=== PATIENT | male | born 1965 | race Caucasian/White ===

== ENCOUNTER → 2020-03-15 10:15 | Outpatient (BNVA) | payer OTHER, SELFPAY | PROVIDERS: PCP Internal Medicine; Visit Provider Urology | DX: Z76.89 Persons encountering health services in other specified circumstances (principal) ==

== ENCOUNTER 2020-07-23 13:10 | Outpatient (REF) | payer OTHER, SELFPAY ==
--- NOTE | ~2020-07-23 | XR_ITS ---
EXAMINATION: XR KNEE, RIGHT CLINICAL INFORMATION: Right knee pain. COMPARISON: None TECHNIQUE: AP standing views of both knees as well as sunrise and lateral view of the right knee. FINDINGS: There is no evidence of acute fracture or dislocation on provided imaging. Joint spaces are maintained about the medial and lateral joint spaces bilaterally. There is some bony spurring seen about the medial aspect of the distal right femur consistent with previous medial collateral ligament injury. Lateral and sunrise views of the right knee demonstrate mild spurring undersurface of the patella at the patellofemoral joint. The joint space is maintained. No effusion is noted. XR/XR knee RT 2V IMPRESSION: Mild degenerative change right patellofemoral joint. 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
--- NOTE | ~2020-07-23 | XR_ITS ---
EXAMINATION: XR KNEE, RIGHT CLINICAL INFORMATION: Right knee pain. COMPARISON: None TECHNIQUE: AP standing views of both knees as well as sunrise and lateral view of the right knee. FINDINGS: There is no evidence of acute fracture or dislocation on provided imaging. Joint spaces are maintained about the medial and lateral joint spaces bilaterally. There is some bony spurring seen about the medial aspect of the distal right femur consistent with previous medial collateral ligament injury. Lateral and sunrise views of the right knee demonstrate mild spurring undersurface of the patella at the patellofemoral joint. The joint space is maintained. No effusion is noted. XR/XR knee standing BI IMPRESSION: Mild degenerative change right patellofemoral joint. 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
== END 2020-07-23 13:11 | disposition home or self-care (01) ==
LOC: HO.HOSX 13:10
PROVIDERS: Visit Provider Orthopaedic Surgery
DX: M25.561 Pain in right knee (principal); M25.562 Pain in left knee
CPT/HCPCS: 73560; 73565

== ENCOUNTER → 2020-07-24 12:07 | Outpatient (BNVA) | payer OTHER, SELFPAY | PROVIDERS: PCP Internal Medicine; Visit Provider Orthopaedic Surgery | DX: M25.561 Pain in right knee (principal); M25.562 Pain in left knee ==

== ENCOUNTER 2021-07-29 09:33 | Outpatient (REF) | payer OTHER, SELFPAY ==
[2021-07-29 10:15] LABS: Hematocrit 43.1 % (42.0-52.0); Hemoglobin 14.9 g/dl (14.0-18.0); Mean Corpuscular HGB Conc 34.6 g/dl (31.0-36.0); Mean Corpuscular Hemoglobin 29.2 pg (27.0-33.0); Mean Corpuscular Volume 84.5 fL (80.0-98.0); Mean Platelet Volume 9.4 fL (9.4-12.4); Platelet Count 186 X10*3/uL (160-400); White Blood Count 5.9 X10*3/uL (4.8-10.8)
[2021-08-03 17:47] LABS: Testosterone, Free 178.7 pg/mL (35.0-155.0); Testosterone, Total 889 ng/dL (250-1100)
== END 2021-07-29 09:34 | disposition home or self-care (01) ==
LOC: HO.LAB 09:33
PROVIDERS: PCP Family Medicine; Visit Provider Urology
DX: Z12.5 Encounter for screening for malignant neoplasm of prostate (principal); N52.01 Erectile dysfunction due to arterial insufficiency; E29.1 Testicular hypofunction
CPT/HCPCS: 36415; 84153; 84402; 84403; 85027

== ENCOUNTER 2022-04-04 13:52 | Outpatient (REF) | payer OTHER, SELFPAY ==
[2022-04-04 15:00] LABS: Hematocrit 47.1 % (42.0-52.0)
[2022-04-04 16:03] LABS: Prostate Specific Antigen 0.45 ng/mL (<0.05-4.0)
[2022-04-10 13:54] LABS: Testosterone, Total 123 ng/dL (250-1100)
== END 2022-04-04 13:53 | disposition home or self-care (01) ==
LOC: HO.LAB 13:52
PROVIDERS: PCP Internal Medicine; Visit Provider Urology
DX: Z12.5 Encounter for screening for malignant neoplasm of prostate (principal); E29.1 Testicular hypofunction
CPT/HCPCS: 36415; 84153; 84403; 85014

== ENCOUNTER → 2022-04-10 13:46 | Outpatient (BNVA) | payer OTHER, SELFPAY | PROVIDERS: PCP Internal Medicine; Visit Provider Urology | DX: Z13.89 Encounter for screening for other disorder (principal) ==

== ENCOUNTER 2022-10-31 11:10 | Outpatient (REF) | payer OTHER, SELFPAY ==
[2022-10-31 13:29] LABS: Hematocrit 46.9 % (42.0-52.0); Hemoglobin 15.8 g/dl (14.0-18.0); Mean Corpuscular HGB Conc 33.7 g/dl (31.0-36.0); Mean Corpuscular Hemoglobin 28.9 pg (27.0-33.0); Mean Corpuscular Volume 85.7 fL (80.0-98.0); Mean Platelet Volume 9.8 fL (9.4-12.4); Platelet Count 192 X10*3/uL (160-400); Red Blood Count 5.47 X10*6/uL (4.60-5.80); Red Cell Distribution Width 12.6 % (11.0-16.0); White Blood Count 5.3 X10*3/uL (4.8-10.8)
[2022-10-31 14:05] LABS: PSA,Total (Free>4and<10) 0.59 ng/mL (0.00-4.00)
[2022-11-06 10:59] LABS: Testosterone, Free 163.4 pg/mL (35.0-155.0); Testosterone, Total 720 ng/dL (250-1100)
== END 2022-10-31 11:11 | disposition home or self-care (01) ==
LOC: HO.HMGCLDS 11:10
PROVIDERS: Visit Provider Urology
DX: Z12.5 Encounter for screening for malignant neoplasm of prostate (principal); E29.1 Testicular hypofunction
CPT/HCPCS: 36415; 84153; 84402; 84403; 85027

== ENCOUNTER 2022-11-14 12:58 | Outpatient (AMB) | payer OTHER, SELFPAY ==
--- NOTE | 2022-11-14 12:58 | MHC.OFFVIS ---
Intake Intake Visit Reasons: 4M CBC/PSA/Testo(pending) Intake Note: Patient is present for Telephone labs Urology Med: Sildenafil, Tadalafil, testosterone Antibiotic Allergy: None Blood Thinner: None [facility]acy: [facility] Allergies No Known Allergies Allergy (Verified 11/14/22 12:59) HPI HPI Comments History of Present Illness Details Jayme is a pleasant male. He is a patient of Dr. Acosta. He is seen for the following urologic conditions - low testosterone - erectile dysfunction Telemedicine Evaluation 15 min Consultation [employer] Video attempted Lab work done on a Thursday. T 720 P 0.45 H 46.9 Injection Day: Thu Adjust testosterone dose to 0.[address] scan after UTI. Thickened bladder. Plan on trial of daily tadalafil. Hypogonadism: Would suggest therapeutic phlebotomy once every 6 months. The patient presents for hypogonadism which was diagnosed 2012 and the patient reports no current symptoms. Other symptoms include libido recovered Laboratory testing has included Testosterone 08/28 548, October 2015 testosterone 618, estradiol 32, hematocrit August - , Testosterone 129, hematocrit 53 04/02 , Testosterone 500, Hct 53 09/30 , Testosterone 993, PSA 0.6 06/01 T 750, PSA 0.7, HCT 52, 01/01 T 122, PSA 0.4, HCT 54.9 08/04 T 888 0.3 43, 04/07 T 123 P 0.45, 11/05 T 720 P 0.45 H 46.9 Medication(s) include testosterone. Response to medication(s) has been good. He injects around .6cc every 7 days subq Erectile dysfunction: He presents today for for continued evaluation and management of erectile dysfunction Symptoms have been present for/since several months ago. Current treatment includes none. Treatment side effects include none. Prior therapies include oral medications - 20mg sildenafil At this time he experiences erections 04/02 are partial and adequate for vaginal penetration, ALIZA 17-21 Mild ED. Currently they are in a stable relationship. Overall he is satisfied with the current management. Therapeutic plan includes oral medication - discussed Review of Systems Const All systems reviewed & are unremarkable except as noted in HPI and below Reports no additional complaints Resp Reports no additional complaints GI Reports no additional complaints Reports as per HPI Musc Reports no additional complaints Physical Exam Telemedicine evaluation Appropriate responses Regular breathing rate and rhythm HEENT Head: Yes normal to inspection Ears: hearing grossly normal bilaterally Eyes General: appearance normal, both eyes and all related structures Neck Neck: Yes normal visual inspection Chest Chest palpation & inspection: normal inspection of the chest Resp Effort & Inspection: normal respiratory effort and able to speak in complete sentences Assessment & Plan Assessment & Plan (1) Incomplete emptying of bladder due to benign prostatic hyperplasia: Code(s): N40.1 - Benign prostatic hyperplasia with lower urinary tract symptoms; R33.9 - Retention of urine, unspecified Plan Adjust testosterone dose Convert to daily tadalafil Orders: Orders Prostate Specific Antigen 6 Months N52.01 - Erectile dysfunction due to arterial insufficiency Complete Blood Count no Diff 6 Months N52.01 - Erectile dysfunction due to arterial insufficiency Testosterone, Total 6 Months N52.01 - Erectile dysfunction due to arterial insufficiency Medications: New tadalafil 5 mg PO DAILY 90 tabs 1RF BPH 90 days N40.1 - Benign prostatic hyperplasia with lower urinary tract symptoms, R33.9 - Retention of urine, unspecified Changed From testosterone cypionate subq administration - check lab work 2-3 full days after injection 120 mg (0.6 mL) subcut QWEEK 4 mL 5RF 28 days E29.1 - Testicular hypofunction To testosterone cypionate subq administration - check lab work 2-3 full days after injection 160 mg (0.8 mL) subcut QWEEK 4 mL 5RF 28 days E29.1 - Testicular hypofunction Patient Instructions: Imaging studies, laboratory and physical exam results were discussed and reviewed in detail. No major barriers to patient understanding were identified. An opportunity to ask questions regarding the treatment plan was provided. All questions were answered. The patient expressed understanding and agreement with the above treatment plan. The patient is aware they should contact our office by phone for worsening of their current condition or the appearance of new urologic symptoms. Compliance is encouraged with any medications and followup testing that is ordered. It is a privilege to participate in the urologic care of your patient. If you have any questions or concerns regarding treatment for the above conditions, or other urologic issues, please do not hesitate to contact me. The office telephone contact is [phone]. This note is constructed using voice recognition software. While every effort has been made to ensure accuracy entertainment production professional errors may have been included. Yours sincerely, Dr Butch Roberts MD, [facility] - Urology Providers of Expert, Compassionate Care for the Genitourinary System Telehealth Telehealth Location of provider rendering services: practice address Location of patient: address on file Patient Identification confirmed using: Name, : Yes Telehealth method: video Patient verbally consented to treatment: Yes Patient verbally consented to billing insurance company: Yes Patient informed of any privacy concerns related to visit: Yes Coding Level of Care Code Tele Est Pt Level 4 (36735) Diagnoses Incomplete emptying of bladder due to benign prostatic hyperplasia N40.1; R33.9
== END 2022-11-14 13:49 | disposition home or self-care (01) ==
LOC: HO.HUSH 12:58
PROVIDERS: PCP Internal Medicine; Visit Provider Urology
DX: N40.1 Benign prostatic hyperplasia with lower urinary tract symptoms (principal); R33.9 Retention of urine, unspecified
CPT/HCPCS: 99214

== ENCOUNTER → 2022-11-14 12:58 | Outpatient (BNVA) | payer OTHER, SELFPAY | PROVIDERS: PCP Internal Medicine; Visit Provider Urology ==

== ENCOUNTER 2023-05-08 11:34 | Outpatient (REF) | payer OTHER, SELFPAY ==
[2023-05-08 14:38] LABS: Hemoglobin 16.3 g/dl (14.0-18.0); Mean Corpuscular HGB Conc 33.3 g/dl (31.0-36.0); Mean Corpuscular Hemoglobin 28.5 pg (27.0-33.0); Mean Corpuscular Volume 85.7 fL (80.0-98.0); Mean Platelet Volume 9.5 fL (9.4-12.4); Platelet Count 186 X10*3/uL (160-400); Red Blood Count 5.72 X10*6/uL (4.60-5.80); Red Cell Distribution Width 14.1 % (11.0-16.0); White Blood Count 5.6 X10*3/uL (4.8-10.8)
[2023-05-08 15:11] LABS: Prostate Specific Antigen 0.23 ng/mL (<0.05-4.0)
[2023-05-13 09:18] LABS: Testosterone, Total 428 ng/dL (250-1100)
== END 2023-05-08 11:35 | disposition home or self-care (01) ==
LOC: HO.WFDLDS 11:34
PROVIDERS: Visit Provider Urology
DX: Z12.5 Encounter for screening for malignant neoplasm of prostate (principal); N52.01 Erectile dysfunction due to arterial insufficiency
CPT/HCPCS: 36415; 84153; 84403; 85027

== ENCOUNTER 2023-05-19 13:37 | Outpatient (AMB) | payer OTHER, SELFPAY ==
--- NOTE | 2023-05-19 13:58 | A.OFFVIS_ITS ---
Intake Intake Visit Reasons: 4M CBC/PSA/Testo(Pending)Confirmed Intake Note: Patient is Present for Follow Up LABS Urology Medication: Sildenafil, Tadalafil, Testosterone Antibiotic Allergies:None Blood Thinners:None Confirmed Pharmacy:[facility] PVR:42 Allergies meloxicam Allergy (Mild, Verified 05/19/23 13:58) Unknown Medication List - Last Reconciled 05/19/23 by Butch Roberts MD albuterol sulfate 90 mcg/actuation 0 mcg inhalation amlodipine 5 mg PO DAILY azelastine 2 sprays intranasal BID clonazepam 1 mg PO BEDTIME PRN fluticasone propionate 50 mcg/actuation sprays intranasal gemfibrozil 600 mg PO DAILY PRN naproxen (Naprosyn) 500 mg PO BID promethazine 12.5 mg PO Q6-8H sildenafil (Viagra) 20 mg (0.2 x 100 mg) PO DAILY PRN 84 days syringe with needle As directed tadalafil 5 mg PO DAILY 90 days tadalafil 20 mg PO ONCE PRN 30 days testosterone cypionate 160 mg (0.8 mL) subcut QWEEK 28 days triamcinolone acetonide 0.1% appl topical HPI HPI Comments History of Present Illness Details Jayme is a pleasant male. He is a patient of Dr. Acosta. He is seen for the following urologic conditions - low testosterone - erectile dysfunction Good lab values Continue tadalafil Does have some retrograde ejaculation Discussed pelvic floor exercises Lab work done on a Thursday. T 430 P 0.2 H 49 Injection Day: Wed Testosterone dose to 0.8 mg weekly Hypogonadism: Would suggest therapeutic phlebotomy once every 6 months. The patient presents for hypogonadism which was diagnosed 2012 and the patient reports no current symptoms. Other symptoms include libido recovered Laboratory testing has included Testosterone 08/28 548, October 2015 testosterone 618, estradiol 32, hematocrit August - , Testosterone 129, hematocrit 53 04/02 , Testosterone 500, Hct 53 09/30 , Testosterone 993, PSA 0.6 06/01 T 750, PSA 0.7, HCT 52, 01/01 T 122, PSA 0.4, HCT 54.9 08/04 T 888 0.3 43, 04/07 T 123 P 0.45, 11/05 T 720 P 0.45 H 46.9, 06/06 T 430 P 0.2 H 49 Medication(s) include testosterone. Response to medication(s) has been good. He injects around .6cc every 7 days subq Erectile dysfunction: He presents today for for continued evaluation and management of erectile dysfunction Symptoms have been present for/since several months ago. Current treatment includes none. Treatment side effects include none. Prior therapies include oral medications - 20mg sildenafil At this time he experiences erections /18 are partial and adequate for vaginal penetration, ALIZA 17-21 Mild ED. Currently they are in a stable relationship. Overall he is satisfied with the current management. Therapeutic plan includes oral medication - discussed Review of Systems Const Denies chills and Denies fever(s) Card Reports no additional complaints and Denies syncope Resp Denies cough GI Denies abdominal pain and Denies heartburn Reports as per HPI and Denies change in libido Neuro Denies syncope Psych Denies change in libido Endo Denies change in libido Physical Exam Const General: cooperative, healthy appearing, comfortable and no acute distress Orientation/consciousness: patient oriented x3 HEENT Face and sinus: Yes normal facial exam Mouth: moist mucous membranes Neck Neck: Yes normal visual inspection, Yes full ROM and Yes trachea midline Chest Chest palpation & inspection: normal inspection of the chest Resp Effort & Inspection: normal respiratory effort, able to speak in complete sentences and no respiratory distress GI Inspection: Yes normal to inspection Back/Spine/Pelvis Cervical Spine: normal cervical lordosis Thoracic/Lumbar Spine: thoracic and lumbar spine normal to inspection Skin General skin exam: no rashes or lesions noted Neuro General: patient oriented x3, gait normal, tone normal and moves all extremities Extrem General: Yes normal to inspection and Yes capillary refill normal Office Procedures Post Void Residual Post Residual Void Post Void Residual (PVR): 42 [id number] Void Residual by ultrasound Assessment & Plan Assessment & Plan (1) Erectile dysfunction due to arterial insufficiency: Code(s): N52.01 - Erectile dysfunction due to arterial insufficiency (2) Hypogonadism in male: Code(s): E29.1 - Testicular hypofunction Plan Six-month follow-up labs Orders: Orders AMB Post Void Residual by ultrasound Today N40.1 - Benign prostatic hyperplasia with lower urinary tract symptoms, R33.9 - Retention of urine, unspecified Testosterone, Total 6 Months E29.1 - Testicular hypofunction Prostate Specific Antigen 6 Months E29.1 - Testicular hypofunction Complete Blood Count no Diff 6 Months E29.1 - Testicular hypofunction Medications: Refilled tadalafil 5 mg PO DAILY 90 tabs 1RF BPH 90 days N40.1 - Benign prostatic hyperplasia with lower urinary tract symptoms, R33.9 - Retention of urine, unspecified tadalafil On demand medication take 60 minutes before intended activity 20 mg PO ONCE PRN 30 tabs 0RF sexual activity 30 days N52.01 - Erectile dysfunction due to arterial insufficiency testosterone cypionate subq administration - check lab work 2-3 full days after injection 160 mg (0.8 mL) subcut QWEEK 4 mL 5RF 28 days E29.1 - Testicular hypofunction Patient Instructions: Imaging studies, laboratory and physical exam results were discussed and reviewed in detail. No major barriers to patient understanding were identified. An opportunity to ask questions regarding the treatment plan was provided. All questions were answered. The patient expressed understanding and agreement with the above treatment plan. The patient is aware they should contact our office by phone for worsening of their current condition or the appearance of new urologic symptoms. Compliance is encouraged with any medications and followup testing that is ordered. It is a privilege to participate in the urologic care of your patient. If you have any questions or concerns regarding treatment for the above conditions, or other urologic issues, please do not hesitate to contact me. The office telephone contact is [phone]. This note is constructed using voice recognition software. While every effort has been made to ensure accuracy general operations agent errors may have been included. Yours sincerely, Dr Butch Roberts MD, [facility] - Urology Providers of Expert, Compassionate Care for the Genitourinary System Coding Level of Care Code Est Pt Level 3 (84675) Diagnoses Erectile dysfunction due to arterial insufficiency N52.01 Hypogonadism in male E29.1 CPT Codes Post Residual Void - PVR CPT Code: 81104-[id number] Void Residual by ultrasound ([id number])
== END 2023-05-19 14:33 | disposition home or self-care (01) ==
PROVIDERS: PCP Internal Medicine; Visit Provider Urology
DX: N52.01 Erectile dysfunction due to arterial insufficiency (principal); E29.1 Testicular hypofunction
CPT/HCPCS: 99213

== ENCOUNTER → 2023-05-19 13:37 | Outpatient (BNVA) | payer OTHER, SELFPAY | PROVIDERS: PCP Internal Medicine; Visit Provider Urology | DX: N52.01 Erectile dysfunction due to arterial insufficiency (principal); E29.1 Testicular hypofunction; N40.1 Benign prostatic hyperplasia with lower urinary tract symptoms; R33.8 Other retention of urine | CPT/HCPCS: 51798 ==

== ENCOUNTER 2023-12-31 14:35 | Outpatient (REF) | payer OTHER, SELFPAY ==
[2023-12-31 18:22] LABS: Mean Corpuscular HGB Conc 34.1 g/dl (31.0-36.0); Mean Corpuscular Hemoglobin 29.2 pg (27.0-33.0); Mean Corpuscular Volume 85.8 fL (80.0-98.0); Mean Platelet Volume 9.5 fL (9.4-12.4); Platelet Count 180 X10*3/uL (160-400); Red Blood Count 5.13 X10*6/uL (4.60-5.80); Red Cell Distribution Width 13.2 % (11.0-16.0)
[2023-12-31 18:56] LABS: Prostate Specific Antigen 0.35 ng/mL (<0.05-4.0)
[2024-01-06 13:03] LABS: Testosterone, Total 574 ng/dL (250-1100)
== END 2023-12-31 14:36 | disposition home or self-care (01) ==
LOC: HO.WFDLDS 14:35
PROVIDERS: Visit Provider Urology
DX: E29.1 Testicular hypofunction (principal); Z12.5 Encounter for screening for malignant neoplasm of prostate
CPT/HCPCS: 36415; 84153; 84403; 85027

== ENCOUNTER 2024-01-29 13:01 | Outpatient (AMB) | payer OTHER, SELFPAY ==
--- NOTE | 2024-01-29 13:01 | MHC.OFFVIS ---
Intake Visit Reasons: 8M Follow Up-PSA/Testo/CBC(set) Intake Note: Patient is present for Telephone PSA/Testo follow up Urology Med: Sildenafil, Tadalafil, Testosterone Antibiotic Allergy:None' Blood Thinner: None PSA- 12/31/23- 0.35 Testosterone- 12/31/23- 574 [employer] Required: No Accompanied by: Self / Same As Patient Allergies meloxicam Allergy (Mild, Verified 01/29/24 13:03) Unknown HPI Comments Details: Jayme is a pleasant male. He is a patient of Dr. Acosta. He is seen for the following urologic conditions - low testosterone - erectile dysfunction Telemedicine Evaluation 15 min Consultation [employer] Video Good lab values Continue tadalafil daily plus on demand Lab work done on a Thursday. 575 Injection Day: Thu Testosterone dose to 1.0 mg weekly Hypogonadism: Would suggest therapeutic phlebotomy once every 6 months. The patient presents for hypogonadism which was diagnosed 2012 and the patient reports no current symptoms. Other symptoms include libido recovered Laboratory testing has included Testosterone 08/28 548, October 2015 testosterone 618, estradiol 32, hematocrit August - , Testosterone 129, hematocrit 53 04/02 , Testosterone 500, Hct 53 09/30 , Testosterone 993, PSA 0.6 06/01 T 750, PSA 0.7, HCT 52, 01/01 T 122, PSA 0.4, HCT 54.9 08/04 T 888 0.3 43, 04/07 T 123 P 0.45, 11/05 T 720 P 0.45 H 46.9, 06/06 T 430 P 0.2 H 49, 01/06 575 0.35 Medication(s) include testosterone. Response to medication(s) has been good. He injects around .8 cc every 7 days subq Erectile dysfunction: He presents today for for continued evaluation and management of erectile dysfunction Symptoms have been present for/since several months ago. Current treatment includes none. Treatment side effects include none. Prior therapies include oral medications - 20mg sildenafil At this time he experiences erections 04/02 are partial and adequate for vaginal penetration, ALIZA 17-21 Mild ED. Currently they are in a stable relationship. Overall he is satisfied with the current management. Therapeutic plan includes oral medication - discussed Review of Systems Const All systems reviewed & are unremarkable except as noted in HPI and below Reports no additional complaints Resp Reports no additional complaints GI Reports no additional complaints Reports as per HPI Musc Reports no additional complaints Physical Exam Telemedicine evaluation Appropriate responses Regular breathing rate and rhythm HEENT Head: Yes normal to inspection Ears: hearing grossly normal bilaterally Eyes General: appearance normal, both eyes and all related structures Neck Neck: Yes normal visual inspection Chest Chest palpation & inspection: normal inspection of the chest Resp Effort & Inspection: normal respiratory effort and able to speak in complete sentences Telehealth Telehealth Telehealth Platform: [employer] Location of provider rendering services: practice address Location of patient: address on file Patient Identification confirmed using: Name, : Yes Telehealth method: video Patient verbally consented to treatment: Yes Patient verbally consented to billing insurance company: Yes Patient informed of any privacy concerns related to visit: Yes Minutes spent on Phone/Video with Pt.: 15 Assessment & Plan Assessment & Plan (1) Erectile dysfunction due to arterial insufficiency: Code(s): N52.01 - Erectile dysfunction due to arterial insufficiency Category: Medical (2) Incomplete emptying of bladder due to benign prostatic hyperplasia: Code(s): N40.1 - Benign prostatic hyperplasia with lower urinary tract symptoms; R33.9 - Retention of urine, unspecified Category: Medical (3) Hypogonadism in male: Code(s): E29.1 - Testicular hypofunction Category: Medical Plan Adjust testosterone to 1 cc weekly Six-month follow-up lab work office Orders: Orders Prostate Specific Antigen 6 Months E29.1 - Testicular hypofunction Testosterone, Total 6 Months E29.1 - Testicular hypofunction Complete Blood Count no Diff 6 Months E29.1 - Testicular hypofunction Medications: Changed From testosterone cypionate subq administration - check lab work 2-3 full days after injection 160 mg (0.8 mL) subcut QWEEK 28 days 4 mL 2RF E29.1 - Testicular hypofunction To testosterone cypionate subq administration - check lab work 2-3 full days after injection 200 mg subcut QWEEK 28 days 4 mL 5RF E29.1 - Testicular hypofunction Refilled tadalafil 5 mg PO DAILY 90 days 90 tabs 1RF BPH N40.1 - Benign prostatic hyperplasia with lower urinary tract symptoms, R33.9 - Retention of urine, unspecified tadalafil On demand medication take 60 minutes before intended activity 20 mg PO ONCE 30 days PRN 30 tabs 0RF sexual activity N52.01 - Erectile dysfunction due to arterial insufficiency Patient Instructions: Imaging studies, laboratory and physical exam results were discussed and reviewed in detail. No major barriers to patient understanding were identified. An opportunity to ask questions regarding the treatment plan was provided. All questions were answered. The patient expressed understanding and agreement with the above treatment plan. The patient is aware they should contact our office by phone for worsening of their current condition or the appearance of new urologic symptoms. Compliance is encouraged with any medications and followup testing that is ordered. It is a privilege to participate in the urologic care of your patient. If you have any questions or concerns regarding treatment for the above conditions, or other urologic issues, please do not hesitate to contact me. The office telephone contact is [phone]. This note is constructed using voice recognition software. While every effort has been made to ensure accuracy satellite tv installer errors may have been included. Yours sincerely, Dr Butch Roberts MD, [facility] - Urology Providers of Expert, Compassionate Care for the Genitourinary System Coding Level of Care Code Tele Est Pt Level 4 (71961) Diagnoses Erectile dysfunction due to arterial insufficiency N52.01 Incomplete emptying of bladder due to benign prostatic hyperplasia N40.1; R33.9 Hypogonadism in male E29.1
== END 2024-01-29 13:41 | disposition home or self-care (01) ==
LOC: HO.HUSH 13:01
PROVIDERS: PCP Internal Medicine; Visit Provider Urology
DX: N52.01 Erectile dysfunction due to arterial insufficiency (principal); N40.1 Benign prostatic hyperplasia with lower urinary tract symptoms; R33.9 Retention of urine, unspecified; E29.1 Testicular hypofunction
CPT/HCPCS: 99214

== ENCOUNTER → 2024-01-29 13:01 | Outpatient (BNVA) | payer OTHER, SELFPAY | PROVIDERS: PCP Internal Medicine; Visit Provider Urology ==

== ENCOUNTER 2024-10-20 09:00 | Outpatient (AMB) | payer OTHER, SELFPAY ==
--- NOTE | 2024-10-20 09:07 | A.OFFVIS_ITS ---
Intake Visit Reasons: follow up/ labs Intake Note: Patient is present for follow up Urology Med: Sildenafil, Tadalafil, Testosterone Antibiotic Allergy:None' Blood Thinner: None PVR:57 mls SA- 10/06/2024 :0.3 Testosterone-10/06/2024 :7.3 Fr Testosterone :463 Operations Support Manager Required: No Accompanied by: Self / Same As Patient Allergies meloxicam Allergy (Mild, Verified 10/20/24 09:15) Unknown HPI Comments Details: Jayme is a pleasant male. He is a patient of Dr. Acosta. He is seen for the following urologic conditions - low testosterone - erectile dysfunction Six-month follow-up Good lab values Continue tadalafil daily plus on demand Discussed use of creatine as supplement Lab work done on a Thursday. 460 Injection Day: Thu Testosterone dose to 1.0 mg weekly Hypogonadism: Would suggest therapeutic phlebotomy once every 6 months. The patient presents for hypogonadism which was diagnosed 2012 and the patient reports no current symptoms. Other symptoms include libido recovered Laboratory testing has included Testosterone 08/28 548, October 2015 testosterone 618, estradiol 32, hematocrit August - , Testosterone 129, hematocrit 53 04/02 , Testosterone 500, Hct 53 09/30 , Testosterone 993, PSA 0.6 06/01 T 750, PSA 0.7, HCT 52, 01/01 T 122, PSA 0.4, HCT 54.9 08/04 T 888 0.3 43, 04/07 T 123 P 0.45, 11/05 T 720 P 0.45 H 46.9, 06/06 T 430 P 0.2 H 49, 01/06 575 0.35, 10/07 460 0.3 49 Medication(s) include testosterone. Response to medication(s) has been good. He injects around .8 cc every 7 days subq Erectile dysfunction: He presents today for for continued evaluation and management of erectile dysfunction Symptoms have been present for/since several months ago. Current treatment includes none. Treatment side effects include none. Prior therapies include oral medications - 20mg sildenafil At this time he experiences erections 04/02 are partial and adequate for vaginal penetration, ALIZA 17-21 Mild ED. Currently they are in a stable relationship. Overall he is satisfied with the current management. Therapeutic plan includes oral medication - discussed Review of Systems Const Denies chills and Denies fever(s) Card Reports no additional complaints and Denies syncope Resp Denies cough GI Denies abdominal pain and Denies heartburn Reports as per HPI and Denies change in libido Neuro Denies syncope Psych Denies change in libido Endo Denies change in libido Physical Exam Const General: cooperative, healthy appearing, comfortable and no acute distress Orientation/consciousness: patient oriented x3 HEENT Face and sinus: Yes normal facial exam Mouth: moist mucous membranes Neck Neck: Yes normal visual inspection, Yes full ROM and Yes trachea midline Chest Chest palpation & inspection: normal inspection of the chest Resp Effort & Inspection: normal respiratory effort, able to speak in complete sentences and no respiratory distress GI Inspection: Yes normal to inspection Back/Spine/Pelvis Cervical Spine: normal cervical lordosis Thoracic/Lumbar Spine: thoracic and lumbar spine normal to inspection Skin General skin exam: no rashes or lesions noted Neuro General: patient oriented x3, gait normal, tone normal and moves all extremities Extrem General: Yes normal to inspection and Yes capillary refill normal Office Procedures Post Void Residual Post Residual Void Post Void Residual (PVR): 57 [id number] Void Residual by ultrasound Assessment & Plan Assessment & Plan (1) Erectile dysfunction due to arterial insufficiency: Code(s): N52.01 - Erectile dysfunction due to arterial insufficiency Category: Medical (2) Incomplete emptying of bladder due to benign prostatic hyperplasia: Code(s): N40.1 - Benign prostatic hyperplasia with lower urinary tract symptoms; R33.9 - Retention of urine, unspecified Category: Medical (3) Hypogonadism in male: Code(s): E29.1 - Testicular hypofunction Category: Medical Plan Continue interval surveillance Orders: Orders Complete Blood Count no Diff 6 Months E29.1 - Testicular hypofunction AMB Post Void Residual by ultrasound Today N40.1 - Benign prostatic hyperplasia with lower urinary tract symptoms, N52.01 - Erectile dysfunction due to arterial insufficiency, R33.9 - Retention of urine, unspecified Prostate Specific Antigen 6 Months E29.1 - Testicular hypofunction Testosterone, Total 6 Months E29.1 - Testicular hypofunction AMB Urinalysis Automated Today N40.1 - Benign prostatic hyperplasia with lower urinary tract symptoms, N52.01 - Erectile dysfunction due to arterial insufficiency, R33.9 - Retention of urine, unspecified Medications: Refilled testosterone cypionate subq administration - check lab work 2-3 full days after injection 200 mg subcut QWEEK 4 mL 5RF 28 days E29.1 - Testicular hypofunction tadalafil On demand medication take 60 minutes before intended activity 20 mg PO ONCE PRN 30 tabs 0RF sexual activity 30 days N52.01 - Erectile dysfunction due to arterial insufficiency tadalafil 5 mg PO DAILY 90 tabs 1RF BPH 90 days N40.1 - Benign prostatic hyperplasia with lower urinary tract symptoms, R33.9 - Retention of urine, unspecified Patient Instructions: This note is constructed using voice recognition software. While every effort has been made to ensure accuracy intensive care ambulance paramedic errors may have been included. Imaging studies, laboratory and physical exam results were discussed and reviewed in detail. No major barriers to patient understanding were identified. An opportunity to ask questions regarding the treatment plan was provided. All questions were answered. The patient expressed understanding and agreement with the above treatment plan. The patient is aware they should contact our office by phone for worsening of their current condition or the appearance of new urologic symptoms. Compliance is encouraged with any medications and followup testing that is ordered. It is a privilege to participate in the urologic care of your patient. If you have any questions or concerns regarding treatment for the above conditions, or other urologic issues, please do not hesitate to contact me. The office telephone contact is [phone]. Sincerely, Dr Butch Roberts MD, [facility] - Urology Compassionate Specialist Care for the Genitourinary System Coding Level of Care Code Est Pt Level 4 (41201) Diagnoses Erectile dysfunction due to arterial insufficiency N52.01 Incomplete emptying of bladder due to benign prostatic hyperplasia N40.1; R33.9 Hypogonadism in male E29.1 CPT Codes Post Residual Void - PVR CPT Code: 15218-Hpub Void Residual by ultrasound ([id number])
--- OUTSIDE RECORDS SUMMARY | 2024-10-20 09:22 | XMS_ITS | Clinical Summary ---
Author Organization [facility] Address [address] [place] [address] [place] [id number] Phone Care Team Providers Care Tree Pruner Name Role Phone Francis Ramos MD Primary Care Provider Allergies No known active allergies Medications aspirin 81 MG EC tablet 81 mg daily. Active Social History Tobacco Use Types Packs/Day Years Used Date Smoking Tobacco: Never Assessed Education Answer Date Recorded Are you interested in more education? Not on bryant e 07/11/2022 Are you concerned about learning? Not on file 07/11/2022 No 07/11/2022 No 07/11/2022 Digital Access Answer Date Recorded No 08/11/2022 No 08/11/2022 No 08/11/2022 Reliable internet access at home? Not on file 08/11/2022 Device with a working camera? Not on file Sex and Gender Information Value Date Recorded Sex Assigned at Not on file Legal Sex Male 8:51 PM EDT Gender Identity Not on file Sexual Orientation Not on file Last Filed Vital Signs Vital Sign Reading Time Taken Comments Blood Pressure 135/85 11/06/2016 8:59 PM EDT Pulse 71 11/06/2016 8:59 PM EDT Temperature 36.7 C (98.1 F) 11/06/2016 8:59 PM EDT Respiratory Rate 16 11/06/2016 8:59 PM EDT Oxygen Saturation 99% 11/06/2016 8:59 PM EDT Inhaled Oxygen Concentration - - Weight 102.1 kg (225 lb) 11/06/2016 8:59 PM EDT Height 170.2 cm (5' 7 ) 11/06/2016 8:59 PM EDT Body Mass Index 35.24 11/06/2016 8:59 PM EDT Plan of Treatment Health Maintenance Due Date Last Done Comments Adult Td,Tdap Booster 1965 LIPID PANEL 1965 DEPRESSION SCREENING 1975 SMOKING Hx and SMOKELESS TOBACCO SCREENING 12/23/1976 HEPATITIS C SCREENING 12/23/1981 HIV ONE-TIME SCREENING (18-6 5 YEARS) 12/23/1981 COLOGUARD 12/23/2008 COLONOSCOPY 12/23/2008 COLORECTAL CANCER SCREENING 12/23/2008 FIT TEST 12/23/2008 FOBT 12/23/2008 SIGMOIDOSCOPY 12/23/2008 VIRTUAL COLONOSCOPY 12/23/2008 PNEUMOCOCCAL VACCINES (50+ years) (1 of 1 - PCV) 12/23/2013 ZOSTER VACCINES (1 of 2) 12/23/2013 COVID-19 VACCINE (3 - 2023-2 5 season) 2023 06/07/2020, 05/10/2020 RSV VACCINE (1 - 1-dose 75+ series) 12/23/2038 HEPATITIS A VACCINES Aged Out No long er eligible based on patient's age to complete this topic HIB VACCINES Aged Out No longer eligi ble based on patient's age to complete this topic MENINGOCOCCAL VACCINES (ACWY) Aged Out No longer eligible based on patient's age to complete this topic MENINGOCOCCAL VACCINES (B) Aged Out N o longer eligible based on patient's age to complete this topic Medical Devices Not on file Insurance [facility] PPO CIGNA PPO CIGNA PPO CIGNA PPO CIGNA PPO CIG PPO CIG PPO CIG PPO CIGNA PPO Care Teams Tree Pruner Relationship Specialty Start Date End Date Francis Ramos MD [address] [place] [address] PCP - General Internal Medicine 11/06/16 Additional Source Comments The information contained in this document represents components of the legal health record. It is not the complete legal health record.[facility]
--- OUTSIDE RECORDS SUMMARY | 2024-10-20 09:22 | XMS_ITS | Clinical Summary ---
Author Organization [facility] Address [address] [place] [address] Care Team Providers Care Senior Marketing Specialist Name Role Phone Francis Ramos MD Primary Care Provider [phone] Allergies Active Allergy Reactions Criticality Noted Date Comments Meloxicam 08/24/2018 Other reaction(s): Other (see comments) Burning sensation on his skin Medications Medication Sig Dispensed Refills Start Date End Date Status Testosterone Cypionate (DEPO-TESTOSTERONE IM) INJECT 1 ML INTO THE MUSCLE ONCE PER WEEK 0 04/12/2018 Active b complex vitamins capsule Take 1 capsule by mouth. 0 Active vitamin C (ASCORBIC ACID) 500 MG tablet Take 500 mg by mouth. 0 Active B-D TB SYRINGE 1CC/27GX1/2 27G X 1/2 1 ML MISC USE DIRECTED 5 12/13/2018 Activ e vitamin E 100 UNIT capsule Take 100 Units by mouth. 0 Active [place]-3 Fatty Acids (FISH OIL) 1000 MG CAPS Take 1,000 mg by mouth. 0 Active clonazePAM (KlonoPIN) 1 MG tablet 0 04/01/2019 Active [id number] C, OTIC, (CORTISPORIN) 1 % SOLN otic solution 0 03/28/2019 Active sildenafil (REVATIO) 20 MG tablet TAKE UP TO 5 TABLETS BY MOUTH ONCE DAILY FOR 7 DAYS. MAXIMUM OF 5 TABLETS A DAY 0 04/11/2019 Active testosterone cypionate (DEPO-TESTOSTERONE CYPIONATE) injection 200 mg/mL 0 04/01/2019 Active oxyCODONE (ROXICODONE) 5 MG immediate release tablet Take 1 tablet (5 mg total) by mouth every 6 (six) hours as needed for pain. Do not take until after surgery 30 tablet 0 04/18/2019 Active promethazine (PHENERGAN) 12.5 MG tablet Take 1 tablet (12.5 mg total) by mouth every 8 (eight) hours as needed. 4 tablet 0 04/18/2019 Active gabapentin (NEURONTIN) 300 MG capsule Take 300mg for 3 days at bedtime. Please start 1 night prior to surgery 3 capsule 0 04/18/2019 Active Active Problems Problem Noted Date Diagnosed Date Calcific tendinitis of right shoulder 05/20/2018 Partial tear of right rotator cuff 05/20/2018 Family History Medical History Relation Name Comments Cancer Brother Cancer Father Hypertension Father Hypertension Mother Relation Name Status Comments Brother Father high cholestero l Mother Social History Tobacco Use Types Packs/Day Years Used Date Smoking Tobacco: Never Smokeless Tobacco: Never Alcohol Use Standard Drinks/Week Comments Yes 4 (1 standard drink = 0.6 oz pur e alcohol) Sex and Gender Information Value Date Recorded Sex Assigned at Not on file Gender Identity Not on file Sexual Orientation Not on file Job Start Date Occupation Industry Not on file Not on file Not on file Last Filed Vital Signs Vital Sign Reading Time Taken Comments Blood Pressure - - Pulse - - Temperature - - Respiratory Rate - - Oxygen Saturation - - Inhaled Oxygen Concentration - - Weight 101.6 kg (224 lb) 05/09/2019 2:18 PM EST Height 172.7 cm (5' 8 ) 05/09/2019 2:18 PM EST Body Mass Index 34.06 05/09/2019 2:18 PM EST Plan of Treatment Health Maintenance Due Date Last Done Comments Hepatitis C Screening 1965 COVID-19 Vaccine (#1) 06/23/1964 Depression Screening 1975 BMI Counseling 12/23/1981 Preventative Health Evaluation 12/23/1981 DTap / Tdap / Td (1 - Tdap) 12/23/1982 Colon Cancer Screening (Colonoscopy) 12/23/2008 Shingrix-Zoster Vaccine (1 of 2) 12/23/2013 Influenza Vaccine (#1) 2024 RSV Adult > 60+ Yrs or Pregn ant (1 - 1-dose 75+ series) 12/23/2038 Hepatitis B Vaccines Aged Out No long er eligible based on patient's age to complete this topic Pneumococcal Vaccine Aged Out No long er eligible based on patient's age to complete this topic RSV Ped < 20 months Aged Out No longe r eligible based on patient's age to complete this topic Care Teams Senior Marketing Specialist Relationship Specialty Start Date End Date Francis Ramos MD [address] [place] [id number] PCP - General Edge Inker Uppers 03/22/19
--- OUTSIDE RECORDS SUMMARY | 2024-10-20 09:22 | XMS_ITS | Clinical Summary ---
Author Organization [facility] Address [address] [place] [id number] Care Team Providers Care School Clerk Name Role Phone Md, Unknown Primary Care Provider Unavailabl e Allergies Active Allergy Reactions Criticality Noted Date Comments Meloxicam Hives 08/24/2018 Other reaction(s): Other (see comments) Burning sensation on his skin Burning sensation on his skin Medications testosterone cypionate (DEPO-TESTOTERON E) 200 mg/mL injection 200 mg. 11/02/2019 Active sildenafil (REVATIO) 20 mg tablet 20 mg. 10/13/2019 Active clonazePAM (KlonoPIN) 1 mg tablet Take 1 mg by mouth at night if needed. 09/01/2019 Active BD Luer-Gordo Syringe 3 mL 23 gauge x 1 1/2 syringe 1 application . 08/23/2019 Active albuterol (PROVENTIL;AKILA ALVARO) 90 mcg/actuation inhaler 1 puff. 11/18/2019 Active Social History Tobacco Use Types Packs/Day Years Used Date Smoking Tobacco: Never Sex and Gender Information Value Date Recorded Sex Assigned at Not on file Legal Sex Male 1:50 PM EDT Gender Identity Not on file Sexual Orientation Not on file Last Filed Vital Signs Vital Sign Reading Time Taken Comments Blood Pressure 146/98 11/20/2019 2:03 PM EDT Pulse 97 11/20/2019 2:03 PM EDT Temperature 36.6 C (97.8 F) 11/20/2019 2:03 PM EDT Respiratory Rate 19 11/20/2019 2:03 PM EDT Oxygen Saturation 98% 11/20/2019 2:03 PM EDT Inhaled Oxygen Concentration - - Weight 99.8 kg (220 lb) 11/20/2019 2:03 PM EDT Height 170.2 cm (5' 7 ) 11/20/2019 2:03 PM EDT Body Mass Index 34.46 11/20/2019 2:03 PM EDT Plan of Treatment Health Maintenance Due Date Last Done Comments CT Colonography 1963 Colonoscopy 1963 Colorectal Cancer Screening 1963 FIT-DNA 1963 FIT 1963 FOBT 1963 Sigmoidoscopy 1963 Annual Physical Exam 12/23/1981 Tdap and Td Vaccines Adult 12/23/1982 Pneumococcal Vaccine: 50+ Ye ars (1 of 1 - PCV) 12/23/2013 Zoster Vaccines (1 of 2) 12/23/2013 COVID-19 Vaccine (1 - 2023-2 5 season) 2023 Influenza Vaccine (#1) 2024 RSV 60+ (1 - 1-dose 75+ series) 12/23/2038 HIB Vaccines Aged Out No longer eligi ble based on patient's age to complete this topic HPV Vaccines (No Doses Required) Completed Hepatitis A Vaccines Aged Out No long er eligible based on patient's age to complete this topic IPV Vaccines Aged Out No longer eligi ble based on patient's age to complete this topic Meningococcal Vaccine Aged Out No michaela sharlene eligible based on patient's age to complete this topic RSV <20 Months Aged Out No longer floridalma gible based on patient's age to complete this topic Insurance [employer] Care Teams School Clerk Relationship Specialty Start Date End Date , Unknown 1 Dont Change PCP - General 11/20/19
== END 2024-10-20 10:08 | disposition home or self-care (01) ==
LOC: HO.HUSH 09:01
PROVIDERS: PCP Internal Medicine; Visit Provider Urology
DX: N52.01 Erectile dysfunction due to arterial insufficiency (principal); N40.1 Benign prostatic hyperplasia with lower urinary tract symptoms; R33.9 Retention of urine, unspecified; E29.1 Testicular hypofunction
CPT/HCPCS: 99214

== ENCOUNTER → 2024-10-20 09:00 | Outpatient (BNVA) | payer OTHER, SELFPAY | PROVIDERS: PCP Internal Medicine; Visit Provider Urology | DX: N52.01 Erectile dysfunction due to arterial insufficiency (principal) | CPT/HCPCS: 51798; 81003 ==